=== PATIENT | female | born 1970 | race African-American/Black ===

== ENCOUNTER 2017-01-07 01:39 | Inpatient (IN) | payer MEDICAID ==
[2017-01-07] VITALS (11 sets, daily range): BP systolic 129–175; BP diastolic 70–98; PULSE 76–113; RESP 17–30; TEMP 96.5–98.3; O2SAT 84–98
[~2017-01-07] VITALS: Ht 162.6 cm; Wt 115.0 kg
[~2017-01-07 01:39] MED LIST: AMLO10 PO; FURO20 PO; LISI-363 PO; LOPR50TA12 PO; MELO7.5T PO; NITR0.4S SL; ST J81CH PO; VENTAER INH
[2017-01-07] MEDS ORDERED: ASPI81CH CHEW (01:49)
[2017-01-07] MEDS ORDERED: PERC5TAB12 PO (01:49)
[2017-01-07] MEDS ORDERED: VENTAER INH (01:49)
[2017-01-07] MEDS ORDERED: FURO40TA PO ×2 (01:49→15:35)
[2017-01-07] MEDS ORDERED: ATOR40TA16 PO (01:49)
[2017-01-07] MEDS ORDERED: FUROSEMIDE 100 MG/10 ML VIAL IV PUSH ONE (02:00)
[2017-01-07] MEDS ORDERED: methylPREDNISolone SOD SUCC 125 MG/2 ML VIAL IVP ONE (02:00)
[2017-01-07] MEDS ORDERED: SODIUM CHLORIDE 0.9% FLUSH 10 ML FLUSH IVF PRN (02:00)
[2017-01-07] MEDS ORDERED: NITROGLYCERIN 2% OINT 1 GM PACKET TOPICAL ONE (02:00)
[2017-01-07 02:09] LABS: AUTOMATED NEUTROPHIL # 9.6 TH/MM3 (1.8-7.7); BASOPHIL # 0.1 TH/MM3 (0-0.2); BASOPHIL % 0.4 % (0.0-2.0); EOSINOPHIL # 0.2 TH/MM3 (0-0.4); EOSINOPHIL % 1.5 % (0.0-4.0); HEMATOCRIT 45.5 % (35.0-46.0); HEMO FLAGS DIFF FINAL; LYMPH % 25.9 % (9.0-44.0); LYMPHOCYTE # 3.7 TH/MM3 (1.0-4.8); MEAN CELL VOLUME 81.7 FL (80.0-100.0); MEAN CORPUSCULAR HEMOGLOBIN 25.9 PG (27.0-34.0); MEAN CORPUSCULAR HGB CONC 31.7 % (32.0-36.0); MONO % 5.7 % (0.0-8.0); NEUT % 66.5 % (16.0-70.0); PLATELET COUNT 196 TH/MM3 (150-450); RED BLOOD COUNT 5.57 MIL/MM3 (4.00-5.30); RED CELL DISTRIBUTION WIDTH 16.6 % (11.6-17.2); WHITE BLOOD COUNT 14.4 TH/MM3 (4.0-11.0)
--- NOTE | 2017-01-07 02:12 | RADRPT ---
EXAM DATE/TIME: 01/07/2017 01:52 [facility] COMPARISON: No previous studies available for comparison. INDICATIONS : Shortness of breath MEDICAL HISTORY : None. SURGICAL HISTORY : Pacemaker. ENCOUNTER: Initial ACUITY: 1 day PAIN SCORE: 7/10 LOCATION: Bilateral chest FINDINGS: A single view of the chest demonstrates a pacer lead overlying right atrium and right ventricle. Card iomegaly. Mild vascular congestion pattern. Basilar atelectasis. Peribronchial thickening. CONCLUSION: 1. Cardiomegaly with early edema pattern. Minimal basilar atelectasis. Nate Soto MD on January 07, 2017 at 2:09 Board Certified Radiologist. This report was verified electronically.
[2017-01-07] MEDS: RESP: ALBUTEROL 2.5 MG/IPRATROPIUM 0.5 MG NEB (SCH) INH ×2 (02:16→02:18)
[2017-01-07 02:21] LABS: APTT (PATIENT) 30.1 SEC (24.3-30.1); INTERNATIONAL NORMALIZED RATIO 0.9 RATIO; PROTHROMBIN TIME - PATIENT 10.3 SEC (9.8-11.6)
[2017-01-07 02:22] LABS: ALT (GPT) 18 U/L (10-53); ANION GAP 9 MEQ/L (5-15); AST (GOT) 22 U/L (15-37); BICARBONATE 27.2 MEQ/L (21.0-32.0); BLOOD UREA NITROGEN 13 MG/DL (7-18); CHLORIDE 102 MEQ/L (98-107); GLOMERULAR FILTRATION RATE 94 ML/MIN (>89); MAGNESIUM 2.3 MG/DL (1.5-2.5); POTASSIUM 4.1 MEQ/L (3.5-5.1); SODIUM (NA) 138 MEQ/L (136-145)
[2017-01-07 02:26] LABS: ALKALINE PHOSPHATASE 108 U/L (45-117); CREATINE KINASE 108 U/L (26-192); TOTAL BILIRUBIN ADULT 0.8 MG/DL (0.2-1.0)
[2017-01-07 02:38] LABS: CKMB 1.3 NG/ML (0.5-3.6)
--- NOTE | 2017-01-07 02:45 | PD ---
HPI . Respiratory distress Chief Complaint: Respiratory Distress Time Seen by Provider: 01:47 Travel History International Travel<30 days: No Contact w/Intl Traveler<30days: No Traveled to known affect area: No History of Present Illness HPI This patient presents with chief complaint of respiratory distress was started 1 hour prior presentation. The etiology of her sudden respiratory distress is unknown to her. Her shortness of breath is severe. She reports a cough with some clear phlegm. No fever. She reports a history of both asthma and congestive heart failure. She reports compliance with her medications. She states that her cardiomyopathy is "hereditary." She states that she has never been told that she had coronary artery disease. She is status post placement of an AICD for cardiomyopathy 2 days ago. PFSH Past Medical History Autoimmune Disease: No Blood Disorders: No Cancer: No Cardiovascular Problems: Yes ("Enlarged heart") High Cholesterol: Yes Chest Pain: Yes Congestive Heart Failure: Yes Diminished Hearing: No Endocrine: No Gastrointestinal Disorders: Yes GERD: Yes Genitourinary: No Headaches: Yes Hypertension: Yes Immune Disorder: No Implanted Vascular Access Dvce: No Musculoskeletal: No Neurologic: No Psychiatric: No Reproductive: No Respiratory: No Migraines: Yes ?: Not : 4 Para: 3 Ectopic : Yes Past Surgical History Section: Yes (X2) Gynecologic Surgery: Yes (C-SECTIONS X 2 AND ABLATION) Hysterectomy: Yes (PARTIAL; FALLOPIAN TUBE REMOVED) Other Surgery: Yes (PACEMAKER 2017 ) Social History Alcohol Use: Yes (WEEKENDS ) Tobacco Use: Yes (1/2 PPD ) Substance Use: No Allergies-Medications (Allergen,Severity, Reaction): Coded Allergies: ciprofloxacin (Unverified Allergy, Severe, "suicidal dreams", 01/01/17) penicillin G (Unverified Allergy, Severe, 01/01/17) lactose (Unverified Adverse Reaction, Intermediate, GI UPSET, 01/01/17) Reported Meds & Prescriptions Reported Meds & Active Scripts Active Reported Percocet (Oxycodone-Acetaminophen) 5-325 mg Tab 1 Tab PO Q4H PRN Atorvastatin (Atorvastatin Calcium) 40 Mg Tab 40 Mg PO HS Furosemide 40 Mg Tab 40 Mg PO DAILY Aspirin 81 Mg Chew 81 Mg CHEW DAILY Ventolin Hfa 18 GM Inh (Albuterol Sulfate) 90 Mcg/Act Aer 2 Puff INH Q4H PRN Review of Systems Except as stated in HPI: all other systems reviewed are Neg General / Constitutional: No: Fever, Chills Cardiovascular: No: Chest Pain or Discomfort Respiratory: Positive: Cough, Shortness of Breath Physical Exam Narrative GENERAL: This patient presents in respiratory distress. SKIN: Warm and dry. She has a fresh wound in the left upper chest wall compatible with her recent AICD placement. The wound does not appear infected. HEAD: Atraumatic. Normocephalic. EYES: Pupils equal and round. Extraocular movements are intact. ENT: No nasal bleeding or discharge. Mucous membranes pink and moist. NECK: Trachea midline. Neck is supple. CARDIOVASCULAR: Regular rate and rhythm. Heart sounds are normal. RESPIRATORY: No accessory muscle use. Lungs have diminished air movement with rales and wheezing. GASTROINTESTINAL: Abdomen soft, non-tender, nondistended. MUSCULOSKELETAL: No obvious deformities. No edema. NEUROLOGICAL: Awake and alert. No obvious cranial nerve deficits. Motor grossly within normal limits. Normal speech. PSYCHIATRIC: Appropriate mood and affect; insight and judgment normal. Data Data Last Documented VS Vital Signs Date Time Temp Pulse Resp B/P (MAP) Pulse Ox O2 Delivery O2 Flow Rate FiO2 01/07/17 02:45 97 Nasal Cannula 2.00 01/07/17 01:45 30 01/07/17 01:45 35 01/07/17 01:41 97.7 113 Orders Orders Complete Blood Count With Diff (01/07/17 01:47) Comprehensive Metabolic Panel (01/07/17 01:47) B-Type Natriuretic Peptide (01/07/17 01:47) D-Dimer (01/07/17 01:47) Act Partial Throm Time (Ptt) (01/07/17:47) Prothrombin Time / Inr (Pt) (01/07/17 01:47) Magnesium (Mg) (01/07/17 01:47) Ckmb (Isoenzyme) Profile (01/07/17 01:47) Troponin I (01/07/17 01:47) Iv Access Insert/Monitor (01/07/17 01:47) Electrocardiogram (01/07/17 01:47) Ecg Monitoring (01/07/17 01:47) Oximetry (01/07/17 01:47) Oxygen Administration (01/07/17 01:47) Chest, Single Ap (01/07/17 01:47) Sodium Chloride 0.9% Flush (Ns Flush) (01/07/17 02:00) Methylprednisolone So Succ Inj (Solumedr (01/07/17 02:00) Albuterol-Ipratropium Neb (Duoneb Neb) (01/07/17 02:00) Resp Bipap / Cpap Non Invas Vt (01/07/17 01:47) Furosemide Inj (Lasix Inj) (01/07/17 02:00) Nitroglycerin 2% Oint (Nitroglycerin 2% (01/07/17 02:00) CKMB (01/07/17 01:52) CKMB% (01/07/17 01:52) Admit To Inpatient (01/07/17 ) Vital Signs (Adult) KAILEY.Q4H (01/07/17 03:01) Activity Oob With Assistance (01/07/17 03:01) [employer] / Telemetry KAILEY.Q8H (01/07/17 03:01) Intake + Output 06,14,22 (01/07/17 03:01) Notify Dr: Other (01/07/17 03:01) Diet Heart Healthy (01/07/17 Breakfast) Resp Oxygen Shahab C Titrat 1-4 L (01/07/17 ) Sodium Chloride 0.9% Flush (Ns Flush) (01/07/17 03:15) Sodium Chloride 0.9% Flush (Ns Flush) (01/07/17 09:00) Inpatient Certification (01/07/17 ) Ct Pulmonary Angiogram (01/07/17 03:02) Admit Order (Ed Use Only) (01/07/17 03:03) Labs Laboratory Tests Test 01/07/17 01:52 White Blood Count 14.4 TH/MM3 Red Blood Count 5.57 MIL/MM3 Hemoglobin 14.4 GM/DL Hematocrit 45.5 % Mean Corpuscular Volume 81.7 FL Mean Corpuscular Hemoglobin 25.9 PG Mean Corpuscular Hemoglobin Concent 31.7 % Red Cell Distribution Width 16.6 % Platelet Count 196 TH/MM3 Mean Platelet Volume 8.9 FL Neutrophils (%) (Auto) 66.5 % Lymphocytes (%) (Auto) 25.9 % Monocytes (%) (Auto) 5.7 % Eosinophils (%) (Auto) 1.5 % Basophils (%) (Auto) 0.4 % Neutrophils # (Auto) 9.6 TH/MM3 Lymphocytes # (Auto) 3.7 TH/MM3 Monocytes # (Auto) 0.8 TH/MM3 Eosinophils # (Auto) 0.2 TH/MM3 Basophils # (Auto) 0.1 TH/MM3 CBC Comment DIFF FINAL Differential Comment Prothrombin Time 10.3 SEC Prothromb Time International Ratio 0.9 RATIO Activated Partial Thromboplast Time 30.1 SEC D-Dimer Quantitative (PE/DVT) 2.30 MG/L FEU Blood Urea Nitrogen 13 MG/DL Creatinine 0.79 MG/DL Random Glucose 98 MG/DL Total Protein 8.3 GM/DL Albumin 3.3 GM/DL Calcium Level 9.1 MG/DL Magnesium Level 2.3 MG/DL Alkaline Phosphatase 108 U/L Aspartate Amino Transf (AST/SGOT) 22 U/L Alanine Aminotransferase (ALT/SGPT) 18 U/L Total Bilirubin 0.8 MG/DL Sodium Level 138 MEQ/L Potassium Level 4.1 MEQ/L Chloride Level 102 MEQ/L Carbon Dioxide Level 27.2 MEQ/L Anion Gap 9 MEQ/L Estimat Glomerular Filtration Rate 94 ML/MIN Total Creatine Kinase 108 U/L Creatine Kinase MB 1.3 NG/ML Troponin I 0.03 NG/ML B-Type Natriuretic Peptide 605 PG/ML MDM Medical Decision Making Medical Screen Exam Complete: Yes Emergency Medical Condition: Yes Medical Record Reviewed: Yes (she does not have any old records in our system.) Interpretation(s) EKG shows a sinus rhythm. I don't see any ST segment elevation or depression. Differential Diagnosis Differential diagnosis of dyspnea includes but is not limited to congestive heart failure, pneumonia, wheezing, pneumothorax, pulmonary embolism Narrative Course This patient presents in respiratory distress. She was placed on BiPAP shortly after arrival here. Her respiratory status quickly improved. She was complaining about the BiPAP so it was removed and she was placed on nasal cannula oxygen. She is maintaining her sats on the nasal cannula oxygen at this time. Her chest x-ray shows cardiomegaly and pulmonary vascular congestion. The chest x-ray was independently viewed by me. CBC & BMP Diagram 01/07/17 01:52 Total Protein 8.3 H, Albumin 3.3 L, Calcium Level 9.1, Magnesium Level 2.3, Alkaline Phosphatase 108, Aspartate Amino Transf (AST/SGOT) 22, Alanine Aminotransferase (ALT/SGPT) 18, Total Bilirubin 0.8 BNP is 605. Troponin is 003. In addition to BiPAP, the patient has been treated with Lasix, 80 mg IV which is twice her usual daily dose. Nitropaste was placed. She is clinically markedly improved with this treatment. D-dimer is elevated at 2.3. CT for PE has been ordered. Regardless of the results of the CT, this patient needs to be admitted to the hospital for treatment of CHF.. Critical Care Narrative Aggregate critical care time was 30 minutes. Time to perform other separately billable procedures was not included in the critical care time. My time did not include minutes spent treating any other patients simultaneously or on activities that did not directly contribute to the patient's treatment. The services I provided to this patient were to treat and/or prevent clinically significant deterioration due to respiratory distress I provided critical care services requiring my management, as noted below: Chart data review, documentation time, medication orders and management, vital sign assessments/reviewing monitor data, ordering and reviewing lab tests, ordering and interpreting/reviewing x-rays and diagnostic studies, care of the patient and discussion of the patient with the admitting physicians Physician Communication Physician Communication Dr. Hull Diagnosis Primary Impression: Pulmonary vascular congestion Additional Impression: Respiratory distress Admitting Information Admitting Physician Requests: Admit Condition: Stable Leigh Ann Arnold MD Jan 07, 2017 02:45
[2017-01-07] MEDS ORDERED: SODIUM CHLORIDE 0.9% FLUSH 10 ML FLUSH IV FLUSH PRN (03:15)
--- NOTE | 2017-01-07 03:23 | HHI.HP ---
HPI Service [facility] Primary Care Physician Unknown Admission Diagnosis CHF Diagnoses: Chief Complaint: SOB Travel History International Travel<30 Days: No Contact w/Intl Traveler <30 Da: No Traveled to Known Affected Are: No History of Present Illness This is a 46-year-old female with a history of cardiomyopathy status post pacer or AICD placement(pt claims she had PPM), COPD, asthma, hyperlipidemia, hypertension and GERD. She presented to the emergency department in acute respiratory distress one hour prior to arrival. States she was resting when she developed throbbing discomfort between her shoulder blades then became acutely dyspneic. No fever, chills, cough and leg pain. She underwent PPM placement by Dr. Fletcher because of depressed ejection fraction last Saturday. Denies history of A. fib, bradycardia or tachycardia. She has been compliant with her medications but noted bilateral lower extremity swelling. She admits to fluid indiscretion. Her airconditioning engineer is Dr. Carol Ann Chamberlain. She was hypoxic oxygen saturation of 83%. After being placed on BiPAP and receiving 80 mg IV Lasix, she has improved significantly now tolerating room air. All other systems reviewed negative Review of Systems Except as stated in HPI: all other systems reviewed are Neg Past Family Social History Past Medical History As previously mentioned mentioned Past Surgical History As previously mentioned. section, uterine ablation Reported Medications Percocet (Oxycodone-Acetaminophen) 5-325 mg Tab 1 Tab PO Q4H PRN Atorvastatin (Atorvastatin Calcium) 40 Mg Tab 40 Mg PO HS Furosemide 40 Mg Tab 40 Mg PO DAILY Aspirin 81 Mg Chew 81 Mg CHEW DAILY Ventolin Hfa 18 GM Inh (Albuterol Sulfate) 90 Mcg/Act Aer 2 Puff INH Q4H PRN Allergies: Coded Allergies: ciprofloxacin (Unverified Allergy, Severe, "suicidal dreams", 01/01/17) penicillin G (Unverified Allergy, Severe, 01/01/17) lactose (Unverified Adverse Reaction, Intermediate, GI UPSET, 01/01/17) Family History Cardiomyopathy Social History Occasional alcohol use. Quit tobacco a year ago [id number] history Physical Exam Vital Signs Vital Signs Date Time Temp Pulse Resp B/P (MAP) Pulse Ox O2 Delivery O2 Flow Rate FiO2 01/07/17 02:45 97 Nasal Cannula 2.00 01/07/17 01:50 96 Nasal Cannula 3.00 01/07/17 01:50 96 Nasal Cannula 3.00 01/07/17 01:45 30 84 Room Air 01/07/17 01:45 98 35 01/07/17 01:41 97.7 113 30 84 Physical Exam GENERAL: This is a well-nourished, well-developed patient, in no apparent distress. SKIN: No rashes, ecchymoses or lesions. Cool and dry. HEAD: Atraumatic. Normocephalic. No temporal or scalp tenderness. EYES: Pupils equal round and reactive. Extraocular motions intact. No scleral icterus. No injection or drainage. ENT: Nose without bleeding, purulent drainage or septal hematoma. Throat without erythema, tonsillar hypertrophy or exudate. Uvula midline. Airway patent. NECK: Trachea midline. JVD noted. Supple, nontender, no meningeal signs. CARDIOVASCULAR: Regular rate and rhythm without murmurs, gallops, or rubs. RESPIRATORY: Decreased Breath sounds equal bilaterally. No wheezes, rales, or rhonchi. GASTROINTESTINAL: Abdomen soft, non-tender, nondistended. No guarding. MUSCULOSKELETAL: Extremities without clubbing, cyanosis but with bilateral lower extremity pitting edema. No joint tenderness, effusion, or edema noted. No calf tenderness. Negative Homans sign bilaterally. NEUROLOGICAL: Awake and alert. Cranial nerves II through XII intact. Motor and sensory grossly within normal limits. Five out of 5 muscle strength in all muscle groups. Normal speech. Laboratory Laboratory Tests Test 01/07/17 01:52 White Blood Count 14.4 Red Blood Count 5.57 Hemoglobin 14.4 Hematocrit 45.5 Mean Corpuscular Volume 81.7 Mean Corpuscular Hemoglobin 25.9 Mean Corpuscular Hemoglobin Concent 31.7 Red Cell Distribution Width 16.6 Platelet Count 196 Mean Platelet Volume 8.9 Neutrophils (%) (Auto) 66.5 Lymphocytes (%) (Auto) 25.9 Monocytes (%) (Auto) 5.7 Eosinophils (%) (Auto) 1.5 Basophils (%) (Auto) 0.4 Neutrophils # (Auto) 9.6 Lymphocytes # (Auto) 3.7 Monocytes # (Auto) 0.8 Eosinophils # (Auto) 0.2 Basophils # (Auto) 0.1 CBC Comment DIFF FINAL Differential Comment Prothrombin Time 10.3 Prothromb Time International Ratio 0.9 Activated Partial Thromboplast Time 30.1 D-Dimer Quantitative (PE/DVT) 2.30 Blood Urea Nitrogen 13 Creatinine 0.79 Random Glucose 98 Total Protein 8.3 Albumin 3.3 Calcium Level 9.1 Magnesium Level 2.3 Alkaline Phosphatase 108 Aspartate Amino Transf (AST/SGOT) 22 Alanine Aminotransferase (ALT/SGPT) 18 Total Bilirubin 0.8 Sodium Level 138 Potassium Level 4.1 Chloride Level 102 Carbon Dioxide Level 27.2 Anion Gap 9 Estimat Glomerular Filtration Rate 94 Total Creatine Kinase 108 Creatine Kinase MB 1.3 Troponin I 0.03 B-Type Natriuretic Peptide 605 Result Diagram: 01/07/1715101/07/17151 Imaging Chest x-ray image interpreted by me with pulmonary edema Caprini VTE Risk Assessment Caprini VTE Risk Assessment: Mod/High Risk (score >= 2) Caprini Risk Assessment Model Point Value = 1 Point Value = 2 Point Value = 3 Point Value = 5 Age 41-60 Minor surgery BMI > 25 kg/m2 Swollen legs Varicose veins or History of unexplained or recurrent spontaneous Oral contraceptives or hormone replacement Sepsis (< 1 month) Serious lung disease, including pneumonia (< 1 month) Abnormal pulmonary function Acute myocardial infarction Congestive heart failure (< 1 month) History of inflammatory bowel disease Medical patient at bed rest Age 61-74 Arthroscopic surgery Major open surgery (> 45 min) Laparoscopic surgery (> 45 min) Malignancy Confined to bed (> 72 hours) Immobilizing plaster cast Central venous access Age >= 75 History of VTE Family history of VTE Factor V Leiden Prothrombin [id number] Lupus anticoagulant Anticardiolipin antibodies Elevated serum homocysteine Heparin-induced thrombocytopenia Other congenital or acquired thrombophilia Stroke (< 1 month) Elective arthroplasty Hip, pelvis, or leg fracture Acute spinal cord injury (< 1 month) Prophylaxis Regimen Total Risk Factor Score Risk Level Prophylaxis Regimen 0-1 Low Early ambulation 2 Moderate Order ONE of the following: *Sequential Compression Device (SCD) *Heparin 5000 units SQ BID 3-4 Higher Order ONE of the following medications: *Heparin 5000 units SQ TID *Enoxaparin/Lovenox 40 mg SQ daily (WT < 150 kg, CrCl > 30 mL/min) *Enoxaparin/Lovenox 30 mg SQ daily (WT < 150 kg, CrCl > 10-29 mL/min) *Enoxaparin/Lovenox 30 mg SQ BID (WT < 150 kg, CrCl > 30 mL/min) AND/OR *Sequential Compression Device (SCD) 5 or more Highest Order ONE of the following medications: *Heparin 5000 units SQ TID (Preferred with Epidurals) *Enoxaparin/Lovenox 40 mg SQ daily (WT < 150 kg, CrCl > 30 mL/min) *Enoxaparin/Lovenox 30 mg SQ daily (WT < 150 kg, CrCl > 10-29 mL/min) *Enoxaparin/Lovenox 30 mg SQ BID (WT < 150 kg, CrCl > 30 mL/min) AND *Sequential Compression Device (SCD) Assessment and Plan Assessment and Plan This is a 46-year-old female with a history of cardiomyopathy status post pacer or AICD placement(pt claims she had PPM), COPD, asthma, hyperlipidemia, hypertension and GERD. She presented to the emergency department in acute respiratory distress one hour prior to arrival. States she was resting when she developed throbbing discomfort between her shoulder blades then became acutely dyspneic. No fever, chills, cough and leg pain. She underwent PPM placement by Dr. Fletcher because of depressed ejection fraction last Saturday. Denies history of A. fib, bradycardia or tachycardia. She has been compliant with her medications but noted bilateral lower extremity swelling. She admits to fluid indiscretion. Her airconditioning engineer is Dr. Carol Ann Chamberlain. She was hypoxic oxygen saturation of 83%. After being placed on BiPAP and receiving 80 mg IV Lasix, she has improved significantly now tolerating room air. Acute systolic heart failure. Continue diuresis with IV Lasix and restart Aldactone. CHF education, monitor I/O and weight. She complained of throbbing discomfort between her shoulder blades, will trend cardiac enzymes. Continue aspirin. Claims she had unremarkable stress test and cardiac catheterization many years ago. Obtain records from Dr. Fletcher to confirm recent cardiac procedure Acute respiratory failure resolved status post BiPAP. Oxygen as needed Elevated d-dimer secondary to above. Follow-up CTA. Noncompliance. Counseled DVT prophylaxis with SCD and subcutaneous heparin Discussed Condition With pt El Hull MD Jan 07, 2017 03:23
[2017-01-07] MEDS ORDERED: NITROGLYCERIN 0.4 MG SL 25 TABS/BTL SL PRN (03:30)
[2017-01-07] MEDS ORDERED: NALOXONE HCL 0.4 MG/ML AMP IV PRN (03:30)
[2017-01-07] MEDS ORDERED: LACTULOSE SYRUP 20 GM/30 ML CUP PO PRN (03:30)
[2017-01-07] MEDS ORDERED: oxyCODONE/ACETAMINOPHEN 5 MG/325 MG TAB PO PRN (03:30)
[2017-01-07] MEDS ORDERED: MAGNESIUM HYDROXIDE SUSP 30 ML CUP PO PRN (03:30)
[2017-01-07] MEDS ORDERED: ONDANSETRON HCL 4 MG/2 ML VIAL IVP PRN (03:30)
[2017-01-07] MEDS ORDERED: SENNOSIDES 8.6 MG TAB PO PRN (03:30)
[2017-01-07] MEDS ORDERED: IOHEXOL 350 MG/ML 10 ML VIAL (for RAD DIAG) IVCONTRAST ONE (04:03)
--- NOTE | 2017-01-07 04:51 | RADRPT ---
EXAM DATE/TIME: 01/07/2017 04:02 [facility] COMPARISON: No previous studies available for comparison. INDICATIONS : Shortness of breath and elevated d-dimer. Pacemaker placed 3 days ago. IV CONTRAST: 75 cc Omnipaque 350 (iohexol) IV RADIATION DOSE: 23.18 CTDIvol (mGy) MEDICAL HISTORY : Chronic obstructive pulmonary disease. Cardiovascular disease Gastroesophageal reflux disease. Hypert ension. Congestive heart failure. SURGICAL HISTORY : Hysterectomy. Pacemaker. section. ENCOUNTER: Initial ACUITY: 1 day PAIN SCALE: 10/10 LOCATION: Bilateral chest TECHNIQUE: Volumetric scanning of the chest was performed using a pulmonary embolism protocol MIP images were re constructed. Using automated exposure control and adjustment of the mA and/or kV according to patien t size, radiation dose was kept as low as reasonably achievable to obtain optimal diagnostic quality images. DICOM format image data is available electronically for review and comparison. Follow-up recommendations for detected pulmonary nodules are based at a minimum on nodule size and pa tient risk factors according to Fleischner Society Guidelines. FINDINGS: Contrast bolus is suboptimal but no filling defects are seen pulmonary suggest pulmonary embolus. Pac er lead tips present in right atrium and right ventricle. Trace pleural fluid on the right. Mild grou ndglass opacity in the lungs. Differential diagnosis includes mild edema. Heart size enlarged. CONCLUSION: 1. No pulmonary embolus identified. Recent placement of pacemaker with tip seen right atrium and righ t ventricle. Subcutaneous air present in the left chest wall. Trace right pleural fluid. Groundglass opacity could represent mild edema. Nate Soto MD on January 07, 2017 at 4:44 Board Certified Radiologist. This report was verified electronically.
--- NOTE | 2017-01-07 07:50 | EKG ---
Date Performed: 01/07/2017 Time Performed: 03:40:21 PTAGE: 46 years EKG: Sinus rhythm POSSIBLE LEFT ATRIAL ENLARGEMENT RIGHT AXIS DEVIATION NONSPECIFIC INTRAVENTRICULAR CONDUCTION DELAY NONSPECIFIC T-WAVE ABNORMALITY ABNORMAL ECG PREVIOUS TRACING : 01/07/2017 02.07 No significant change from previous tracing noted. DOCTOR: Samuel Haddad Interpretating Date/Time 01/07/2017 07:49:04
--- NOTE | 2017-01-07 07:51 | EKG ---
Date Performed: 01/07/2017 Time Performed: 02:07:01 PTAGE: 46 years EKG: Sinus rhythm POSSIBLE LEFT ATRIAL ENLARGEMENT RIGHT AXIS DEVIATION NONSPECIFIC INTRAVENTRICULAR CONDUCTION DELAY NONSPECIFIC T-WAVE ABNORMALITY ABNORMAL ECG PREVIOUS TRACING : 07/11/2012 22.16 No significant change from previous tracing noted. DOCTOR: Samuel Haddad Interpretating Date/Time 01/07/2017 07:49:51
[2017-01-07] MEDS ORDERED: ASPIRIN 81 MG CHEW TAB CHEW SCH (09:00)
[2017-01-07] MEDS ORDERED: HEPARIN SODIUM - SQ 10,000 UNITS/ML VIAL SQ SCH (09:00)
[2017-01-07] MEDS ORDERED: SODIUM CHLORIDE 0.9% FLUSH 10 ML FLUSH IV FLUSH SCH (09:00)
[2017-01-07] MEDS ORDERED: SPIRONOLACTONE 25 MG TAB PO SCH (09:00)
[2017-01-07] MEDS ORDERED: DOCUSATE SODIUM 50 MG/SENNA 8.6 MG TAB PO SCH (09:00)
[2017-01-07] MEDS ORDERED: FUROSEMIDE 40 MG/4 ML VIAL IV PUSH SCH (09:00)
--- NOTE | 2017-01-07 12:11 | EKG ---
Date Performed: 01/07/2017 Time Performed: 08:06:23 PTAGE: 46 years EKG: Sinus rhythm POSSIBLE LEFT ATRIAL ENLARGEMENT RIGHT AXIS DEVIATION NONSPECIFIC ST & T-WAVE ABNORMALITY ABNORMAL E CG PREVIOUS TRACING : 01/07/2017 03.40 No significant change from previous tracing noted. DOCTOR: Samuel Haddad Interpretating Date/Time 01/07/2017 12:09:32
[2017-01-07] MEDS ORDERED: SPIR25 PO (15:35)
--- NOTE | 2017-01-07 15:36 | HHI.DCPOC ---
Discharge Care Plan Diagnosis: (1) Acute exacerbation of CHF (congestive heart failure) (2) Respiratory distress Your Health Problems Are: Fluid/Lung Overload Shortness of Breath Goals to Promote Your Health * To prevent worsening of your condition and complications * To maintain your health at the optimal level Directions to Meet Your Goals Take your medications as prescribed Follow your dietary instruction Follow activity as directed Keep your appointments as scheduled Take your immunizations and boosters as scheduled If your symptoms worsen call your PCP, if no PCP go to Urgent Care Center or Emergency Room Smoking is Dangerous to Your Health. Avoid second hand smoke Call the 24-hour hour crisis hotline for domestic abuse at Annalise Pearson PA-C Jan 07, 2017 15:36
--- NOTE | 2017-01-07 15:51 | HHI.PR ---
Subjective Remarks RN contacted Dr. Avendaño as patient requesting to be discharged. I have been asked by Dr. Avendaño to see the patient and discharge home. Follow up for CHF exacerbation. The patient is seen sitting upright on side of bed, dressed, wants to go home. She denies any further shortness of breath or chest pains. She reports urinating a lot overnight and today. She has been off oxygen, O2 sat stable at 96% on room air. She admits that after her pacer insertion, she has been very active around the house, and drinking more water. She noticed leg swelling worsen yesterday. She has been taking her Lasix as prescribed. Educated on salt and fluid restrictions. Objective Vitals Vital Signs Date Time Temp Pulse Resp B/P (MAP) Pulse Ox O2 Delivery O2 Flow Rate FiO2 01/07/17 12:08 96 21 01/07/17 11:29 96.5 82 17 129/70 (89) 94 01/07/17 08:00 76 01/07/17 07:35 97.7 78 18 149/87 (107) 93 01/07/17 06:55 78 01/07/17 04:51 98.3 81 18 158/94 (115) 95 01/07/17 04:22 Nasal Cannula 2.00 01/07/17 03:52 01/07/17 03:51 82 18 175/98 (123) 91 Room Air 01/07/17 02:45 97 Nasal Cannula 2.00 01/07/17 01:50 96 Nasal Cannula 3.00 01/07/17 01:50 96 Nasal Cannula 3.00 01/07/17 01:45 30 84 Room Air 01/07/17 01:45 98 35 01/07/17 01:41 97.7 113 30 84 I/O 01/06/17 01/06/17 01/06/17 01/07/17 01/07/17 01/07/17 07:00 15:00 23:00 07:00 15:00 23:00 Intake Total 240 ml 650 ml Output Total 650 ml Balance -410 ml 650 ml Intake Oral 240 ml 650 ml Output Urine Total 650 ml # Voids 1 8 # Bowel Movements 0 Result Diagram: 01/07/17 01501/07/172 Imaging CXR shows cardiomegaly with early edema pattern; minimal basilar atelectasis. CT-PA negative for PE; recent placement of pacemaker with tip seen right atrium and right ventricle. Subcutaneous air present in left chest wall. Trace right pleural fluid. Groundglass opacity could represent edema. Objective Remarks GENERAL: Well-nourished, well-developed pleasant obese female patient in [place]. SKIN: Warm and dry. No rash. HEENT: Normocephalic. Atraumatic.Pupils equal and round. Mucous membranes pink and moist. NECK: Supple. Trachea midline. CARDIOVASCULAR: Regular rate and rhythm. S1, S2 noted. No murmur appreciated. Pacer incision at left chest clean, no erythema/drainage. RESPIRATORY: No accessory muscle use. Clear to auscultation. Breath sounds equal bilaterally. GASTROINTESTINAL: Abdomen soft, non-tender, nondistended. Normoactive bowel sounds x4. MUSCULOSKELETAL: No obvious deformities. Trace bilateral lower extremity edema. NEUROLOGICAL: Awake and alert. No obvious cranial nerve deficits. Motor grossly within normal limits. Normal speech. PSYCHIATRIC: Appropriate mood and affect; insight and judgment normal. Procedures None. Medications and IVs Current Medications Medications (Trade) Dose Ordered Sig/Don Route Start Time Stop Time Status Last Admin (NS Flush) 2 ml UNSCH PRN IV FLUSH 01/07/17 03:15 (NS Flush) 2 ml BID IV FLUSH 01/07/17 09:00 01/07/17 08:33 (Aldactone) 25 mg BID@09,18 PO 01/07/17 09:00 01/07/17 08:32 (Lasix Inj) 40 mg BID@,18 IV PUSH 01/07/17 09:00 01/07/17 08:30 (Nitrostat Sl) 0.4 mg Q5M PRN SL 01/07/17 03:30 (Aspirin Chew) 81 mg DAILY CHEW 01/07/17 09:00 01/07/17 08:33 (Percocet 5-325 Mg) 1 tab Q4H PRN PO 01/07/17 03:30 (Zofran Inj) 4 mg Q6H PRN IVP 01/07/17 03:30 (Narcan Inj) 0.4 mg UNSCH PRN IV 01/07/17 03:30 (Danelle-Colace) 1 tab BID PO 01/07/17 09:00 01/07/17 08:32 (Milk Of Magnesia Liq) 30 ml Q12H PRN PO 01/07/17 03:30 (Senokot) 17.2 mg Q12H PRN PO 01/07/17 03:30 (Lactulose Liq) 30 ml DAILY PRN PO 01/07/17 03:30 (Heparin Inj) 5,000 units Q12HR SQ 01/07/17 09:00 01/07/17 08:32 A/P Problem List: (1) Acute respiratory failure ICD Code: J96.00 - Acute respiratory failure, unspecified whether with hypoxia or hypercapnia (2) Acute exacerbation of CHF (congestive heart failure) ICD Code: I50.9 - Heart failure, unspecified (3) Pulmonary vascular congestion ICD Code: R09.89 - Other specified symptoms and signs involving the circulatory and respiratory systems Status: Acute Assessment and Plan 46-year-old female with a history of cardiomyopathy s/p pacer or AICD placement( pt claims she had PPM), COPD, asthma, HTN, HLD and GERD presented to the ED in acute respiratory distress one hour prior to arrival. She underwent PPM placement by Dr. Fletcher because of depressed ejection fraction last Saturday. She has been compliant with her medications but noted bilateral lower extremity swelling. She admits to fluid indiscretion. Her tile picker is Dr. Carol Ann Chamberlain. She was hypoxic oxygen saturation of 83%. CXR showed pulmonary edema. D- dimer elevated, CT-PA negative for PE but did also show mild pulmonary edema. She was admitted for acute systolic congestive heart failure and acute respiratory failure. After being placed on BiPAP and receiving 80 mg IV Lasix, she has improved significantly now tolerating room air. She was continued on diuresis with IV lasix 40mg bid and started back on aldactone 25mg bid. Patient had significant urine output. ACS was ruled out with negative serial cardiac enzymes. Patient's symptoms resolved. She was stable on room air. She is requesting to be discharged. Will discharge home. Recommended doubling lasix dose over the next 2 days, educated on fluid/salt restrictions, monitoring daily weight; and recommended close follow up with Dr. Chamberlain. Patient had a remarkable response to treatment with more rapid improvement in expected and she was discharged home. Discharge Planning Discharge patient to home Condition on discharge: Improved Heart Healthy Diet as tolerated Ad [place] activity Rx written: Lasix 40mg bid, Spironolactone 25mg bid Follow-up with primary care physician Dr. Carver within 1 week Follow up with tile picker Dr. Chamberlain in 1 week Annalise Pearson PA-C Jan 07, 2017 15:50
== END 2017-01-07 16:18 | disposition home or self-care (01) | DRG 291 ==
LOC: NEPC 01:39 → NEDA 03:05 → N06B 04:24
PROVIDERS: ADMIT Hospitalist; ATTEND Hospitalist
PROC: 5A09357 Assistance with Respiratory Ventilation, Less than 24 Consecutive Hours, Continuous Positive Airway Pressure (ICD-10-PCS; principal; 2017-01-07)
DX: I11.0 Hypertensive heart disease with heart failure (principal); J96.01 Acute respiratory failure with hypoxia; I42.9 Cardiomyopathy, unspecified; I50.23 Acute on chronic systolic (congestive) heart failure; F17.210 Nicotine dependence, cigarettes, uncomplicated; K21.9 Gastro-esophageal reflux disease without esophagitis; E78.5 Hyperlipidemia, unspecified; J44.9 Chronic obstructive pulmonary disease, unspecified; Z91.19 Patient's noncompliance with other medical treatment and regimen; Z95.0 Presence of cardiac pacemaker
CPT/HCPCS: 71010; 71275; 80053; 82550; 82552; 83735; 83880; 84484; 85025; 85379; 85610; 85730; 93005; 94003; 94640; 94664; 96374; 96375; J1644; J1940; J2930; Q9967

== ENCOUNTER 2017-02-28 13:39 | Emergency (ER) | payer MEDICAID ==
[~2017-02-28] VITALS: Ht 157.5 cm; Wt 118.9 kg
[~2017-02-28 13:39] MED LIST changes: -AMLO10 PO; +ASPI81CH CHEW; +ATOR40TA16 PO; -FURO20 PO; +FURO40TA PO; -LISI-363 PO; -LOPR50TA12 PO; -MELO7.5T PO; -NITR0.4S SL; +PERC5TAB12 PO; +SPIR25 PO; -ST J81CH PO
[2017-02-28 13:47] VITALS: BP 178/91; PULSE 82; RESP 16; TEMP 98; O2SAT 99
[2017-02-28] MEDS ORDERED: CARV25TA PO (14:07)
--- NOTE | 2017-02-28 14:24 | PD ---
HPI Chief Complaint: Skin Problem Time Seen by Provider: 14:20 Travel History International Travel<30 days: No Contact w/Intl Traveler<30days: No Traveled to known affect area: No History of Present Illness HPI 46 YO F with PMH of asthma presents to the ED for evaluation of "4 or 5 day" history of pruritic rash on the left arm and under her abdominal pannus. Gradual onset. Patient states this is similar to previous rash which she states was diagnosed as "fungal." She denies fever, chills, nausea, vomiting. She also complains of redness and swelling of the left eye. No known injury. Onset same time as the rash. She endorses mildly blurred vision. She denies dizziness, headache, foreign body sensation. No alleviating or exacerbating factors reported. No treatment attempted at home. She also requests refills of her albuterol nebulizer treatments. PFSH Past Medical History Hx Anticoagulant Therapy: Yes (BABY ASA DAILY) Autoimmune Disease: No Blood Disorders: No Cancer: No Cardiovascular Problems: Yes (HTN, CHOL , PACEMAKER, CHF) High Cholesterol: Yes Chest Pain: Yes Congestive Heart Failure: Yes Diabetes: No Patient Takes Glucophage: No Diminished Hearing: No Endocrine: No Gastrointestinal Disorders: Yes GERD: Yes Genitourinary: No Headaches: Yes Hypertension: Yes Immune Disorder: No Implanted Vascular Access Dvce: No Musculoskeletal: No Neurologic: No Psychiatric: No Reproductive: No Respiratory: No Migraines: Yes ?: Not : 4 Para: 3 Ectopic : Yes Past Surgical History Section: Yes (X2) Gynecologic Surgery: Yes (C-SECTIONS X 2 AND ABLATION) Hysterectomy: Yes (PARTIAL; FALLOPIAN TUBE REMOVED) Other Surgery: Yes (PACEMAKER 2017 ) Social History Alcohol Use: Yes (WEEKENDS ) Tobacco Use: Yes (1/2 PPD ) Substance Use: No Allergies-Medications (Allergen,Severity, Reaction): Coded Allergies: ciprofloxacin (Unverified Allergy, Severe, "suicidal dreams", 02/28/17) penicillin G (Unverified Allergy, Severe, 02/28/17) lactose (Unverified Adverse Reaction, Intermediate, GI UPSET, 02/28/17) Reported Meds & Prescriptions Reported Meds & Active Scripts Active Albuterol Neb (Albuterol Sulfate) 2.5 Mg/3 Ml Neb 2.5 Mg NEB Q4HR NEB PRN Erythromycin Opth Oint 5 Mg/Gm Oint 1 Applic LEFT EYE BID 7 Days Nystatin Topical (Nystatin) 100,000 unit/gm Cream 1 Applic TOPICAL BID 14 Days Aldactone (Spironolactone) 25 Mg Tab 25 Mg PO BID@09,18 Furosemide 40 Mg Tab 40 Mg PO BID Take double your normal Lasix x2 days, then return to previous dose. Take at 8am & 3pm. Reported Carvedilol 25 Mg Tab 25 Mg PO BID Atorvastatin (Atorvastatin Calcium) 40 Mg Tab 40 Mg PO HS Aspirin 81 Mg Chew 81 Mg CHEW DAILY Ventolin Hfa 18 GM Inh (Albuterol Sulfate) 90 Mcg/Act Aer 2 Puff INH Q4H PRN Review of Systems Except as stated in HPI: all other systems reviewed are Neg Physical Exam Narrative GENERAL: Well-nourished, well-developed patient. SKIN: Focused skin assessment warm/dry. HEAD: Normocephalic. EYES: No scleral icterus. No injection or drainage. OS: Mild erythema of the palpebral surfaces and conjunctiva. No excessive tearing. No limitations to range of motion. FUNDUSCOPIC EXAM: The left funduscopic exam appeared within normal limits without papilledema, A-V nicking or blood associated with the optic disc. NECK: Supple, trachea midline. No JVD or lymphadenopathy. CARDIOVASCULAR: Regular rate and rhythm without murmurs, gallops, or rubs. RESPIRATORY: Breath sounds equal bilaterally. No accessory muscle use. GASTROINTESTINAL: Abdomen soft, non-tender, nondistended. MUSCULOSKELETAL: No cyanosis, or edema. BACK: Nontender without obvious deformity. No CVA tenderness. Data Data Last Documented VS Vital Signs Date Time Temp Pulse Resp B/P (MAP) Pulse Ox O2 Delivery O2 Flow Rate FiO2 02/28/17 13:47 98.0 82 16 178/91 (120) 99 Orders Orders Ed Discharge Order (02/28/17 15:01) MDM Medical Decision Making Medical Screen Exam Complete: Yes Emergency Medical Condition: Yes Differential Diagnosis Candidiasis versus contact dermatitis versus fungal rash versus medication refill versus allergic conjunctivitis versus bacterial conjunctivitis versus other Narrative Course 46 YO F with PMH of asthma presents to the ED for evaluation of "4 or 5 day" history of pruritic rash on the left arm and under her abdominal pannus. Gradual onset. Patient states this is similar to previous rash which she states was diagnosed as "fungal." She denies fever, chills, nausea, vomiting. She also complains of redness and swelling of the left eye. No known injury. Onset same time as the rash. She endorses mildly blurred vision. She denies dizziness, headache, foreign body sensation. She also requests refills of her albuterol nebulizer treatments. I reviewed. Physical exam reveals an obese black female in no acute distress. She does have a rash which is consistent with intertriginous candidiasis. There is mild erythema of the conjunctival surfaces of the left eye otherwise unremarkable. She is prescribed nystatin cream twice a day, instructed to keep the areas clean and dry. She is also prescribed erythromycin optic ointment 4 times a day 7 days. She is instructed to follow-up with a diamond grinder and histologic technician should symptoms persist. She indicated understanding of the discharge instructions. She is stable and discharged home. Diagnosis Primary Impression: Medication refill Additional Impressions: Intertriginous candidiasis Conjunctivitis Qualified Codes: H10.32 - Unspecified acute conjunctivitis, left eye Referrals: Business Services Specialist Sales Patient Instructions: Acute Rash (ED), Conjunctivitis (ED), General Instructions Additional Instructions: Rest, hydrate. Keep the areas of rash clean and dry. Apply topical treatment as prescribed. Apply eyedrops as prescribed. Wash her hands before and after applying eyedrops. Do not touch the eye dropper to the eye. Follow-up with the diamond grinder and histologic technician as discussed. Return to the ED for any urgent or emergent medical condition. Med/Other Pt SpecificInfo: Prescription(s) given Scripts Albuterol Neb (Albuterol Neb) 2.5 Mg/3 Ml Neb 2.5 MG NEB Q4HR NEB Y for SHORTNESS OF BREATH, #60 NEBULE 0 Refills Prov: Russell Briceno MD 02/28/17 Erythromycin Opth Oint (Erythromycin Opth Oint) 5 Mg/Gm Oint 1 APPLIC LEFT EYE BID for Infection for 7 Days, #1 TUBE 0 Refills Prov: Russell Briceno MD 02/28/17 Nystatin Topical (Nystatin Topical) 100,000 unit/gm Cream 1 APPLIC TOPICAL BID for Infection for 14 Days, #15 GM 0 Refills Prov: Russell Briceno MD 02/28/17 Disposition: 01 DISCHARGE HOME Condition: Stable LomasFior PA Feb 28, 2017 14:24
[2017-02-28] MEDS ORDERED: ALBU0.08 NEB (14:59)
[2017-02-28] MEDS ORDERED: ERYTOIN10 LEFT EYE (14:59)
[2017-02-28] MEDS ORDERED: NYST15T TOPICAL (14:59)
== END 2017-02-28 15:14 | disposition home or self-care (01) ==
LOC: PHEFT 13:39
DX: B37.2 Candidiasis of skin and nail (principal); H10.32 Unspecified acute conjunctivitis, left eye; I10 Essential (primary) hypertension; E78.00 Pure hypercholesterolemia, unspecified; F17.200 Nicotine dependence, unspecified, uncomplicated; Z76.0 Encounter for issue of repeat prescription; Z79.82 Long term (current) use of aspirin; Z86.79 Personal history of other diseases of the circulatory system; Z87.19 Personal history of other diseases of the digestive system; Z86.69 Personal history of other diseases of the nervous system and sense organs
CPT/HCPCS: 99284

== ENCOUNTER 2017-04-25 17:54 | Emergency (ER) | payer MEDICAID ==
[~2017-04-25 17:54] MED LIST changes: +ALBU0.08 NEB; +ASPI-516 CHEW; -ASPI81CH CHEW; +CARV25TA PO; +ERYTOIN10 LEFT EYE; +NYST15T TOPICAL; -PERC5TAB12 PO
[2017-04-25 17:58] VITALS: BP 163/96; PULSE 86; RESP 16; TEMP 97.5; O2SAT 97
[2017-04-25] MEDS ORDERED: LOVA40TA PO (18:22)
--- NOTE | 2017-04-25 18:42 | PD ---
HPI Chief Complaint: Injury Time Seen by Provider: 18:23 Travel History International Travel<30 days: No Contact w/Intl Traveler<30days: No Traveled to known affect area: No History of Present Illness HPI 47-year-old female presents to the emergency room for evaluation of right pinky toe pain after dropping a large frozen thing of Fredy sauce on her toe just prior to arrival. Patient was wearing closed-toed, leather boots. Came straight to the emergency room and has not taken anything for pain. Denies paresthesias. Pain is localized to the proximal tibia with radiation proximally. Worse with range of motion and when she touches it. PFSH Past Medical History Hx Anticoagulant Therapy: Yes (BABY ASA DAILY) Autoimmune Disease: No Blood Disorders: No Cancer: No Cardiovascular Problems: Yes (HTN, CHOL , PACEMAKER, CHF) High Cholesterol: Yes Chest Pain: Yes Congestive Heart Failure: Yes Diabetes: No Diminished Hearing: No Endocrine: No Gastrointestinal Disorders: Yes GERD: Yes Genitourinary: No Headaches: Yes Hypertension: Yes Immune Disorder: No Implanted Vascular Access Dvce: No Musculoskeletal: No Neurologic: No Psychiatric: No Reproductive: No Respiratory: No Migraines: Yes ?: Not LMP: 2000 : 4 Para: 3 Ectopic : Yes Past Surgical History Section: Yes (X2) Gynecologic Surgery: Yes (C-SECTIONS X 2 AND ABLATION) Hysterectomy: Yes (PARTIAL; FALLOPIAN TUBE REMOVED) Other Surgery: Yes (PACEMAKER 2017 ) Social History Alcohol Use: Yes (WEEKENDS ) Tobacco Use: Yes (1/2 PPD ) Substance Use: No Allergies-Medications (Allergen,Severity, Reaction): Coded Allergies: ciprofloxacin (Unverified Allergy, Severe, "suicidal dreams", 04/25/17) penicillin G (Unverified Allergy, Severe, 04/25/17) lactose (Unverified Adverse Reaction, Intermediate, GI UPSET, 04/25/17) Reported Meds & Prescriptions Reported Meds & Active Scripts Active Albuterol Neb (Albuterol Sulfate) 2.5 Mg/3 Ml Neb 2.5 Mg NEB Q4HR NEB PRN Aldactone (Spironolactone) 25 Mg Tab 25 Mg PO BID@09,18 Furosemide 40 Mg Tab 40 Mg PO BID Take double your normal Lasix x2 days, then return to previous dose. Take at 8am & 3pm. Reported Lovastatin 40 Mg Tab 50 Mg PO BID Carvedilol 25 Mg Tab 25 Mg PO BID Atorvastatin (Atorvastatin Calcium) 40 Mg Tab 40 Mg PO HS Aspirin 81 Mg Chew 81 Mg CHEW DAILY Ventolin Hfa 18 GM Inh (Albuterol Sulfate) 90 Mcg/Act Aer 2 Puff INH Q4H PRN Review of Systems Except as stated in HPI: all other systems reviewed are Neg Physical Exam Narrative GENERAL: Well-nourished, well-developed female in no acute distress. Afebrile. Ambulatory. SKIN: Focused skin assessment warm/dry. No erythema or ecchymosis. HEAD: Normocephalic. EYES: No scleral icterus. No injection or drainage. NECK: Supple, trachea midline. No JVD or lymphadenopathy. CARDIOVASCULAR: Regular rate and rhythm without murmurs, gallops, or rubs. RESPIRATORY: Breath sounds equal bilaterally. No accessory muscle use. MUSCULOSKELETAL: No cyanosis. No obvious edema. Less than 2 second capillary refill distally on the right fifth toe. Full range of motion. No obvious deformity. Tenderness to palpation of the proximal phalanx. No tenderness to palpation of the fifth metatarsal. Data Data Last Documented VS Vital Signs Date Time Temp Pulse Resp B/P (MAP) Pulse Ox O2 Delivery O2 Flow Rate FiO2 04/25/17 17:58 97.5 86 16 163/96 (118) 97 Room Air Orders Orders Splint Or Brace Apply/Monitor (04/25/17 18:31) MDM Medical Decision Making Medical Screen Exam Complete: Yes Emergency Medical Condition: Yes Medical Record Reviewed: Yes Differential Diagnosis Fracture, contusion, sprain, strain Narrative Course 47-year-old female presents to the emergency room for evaluation of right fifth toe pain and swelling after dropping a bag of frozen Fredy sauce on it just prior to arrival. Physical exam is reassuring. Right toe is neurovascularly intact with less than 2 second capillary refill distally. Patient has been ambulatory. She has full range of motion. There is tenderness to palpation of the proximal toe but no obvious deformity. Fifth metatarsal is nontender. Patient was informed x-rays will not change treatment of suspected toe fracture. She opted to forego at this time. Toe was ginna taped to the fourth toe and patient was placed in a postop shoe. Told to follow up with a primary care physician or return for worsening symptoms. She understands and agrees to plan. Diagnosis Primary Impression: Toe fracture, right Qualified Codes: S92.514A - Nondisplaced fracture of proximal phalanx of right lesser toe(s), initial encounter for closed fracture Referrals: Primary Care Physician Additional Instructions: Ibuprofen as directed, as needed for pain. Keep ginna taped for the next 2 weeks. Then as needed for pain. Elevate. Apply ice to the affected area for 20 minutes at a time, as needed for pain and swelling. Follow-up with a primary care physician. Return to the emergency room for worsening symptoms. Disposition: 01 DISCHARGE HOME Condition: Stable Xiomy Mcdaniel Apr 25, 2017 18:42
== END 2017-04-25 19:02 | disposition home or self-care (01) ==
LOC: NEPK 17:54
DX: S92.514A Nondisplaced fracture of proximal phalanx of right lesser toe(s), initial encounter for closed fracture (principal); I11.0 Hypertensive heart disease with heart failure; E78.00 Pure hypercholesterolemia, unspecified; Z95.0 Presence of cardiac pacemaker; F17.210 Nicotine dependence, cigarettes, uncomplicated; X58.XXXA Exposure to other specified factors, initial encounter; Z88.0 Allergy status to penicillin; Z79.82 Long term (current) use of aspirin; Z79.899 Other long term (current) drug therapy
CPT/HCPCS: 99283; L3260; 99284